=== PATIENT | male | born 1975 | race Caucasian/White ===

== ENCOUNTER 2017-02-28 21:37 | Emergency (ER) | payer OTHER ==
[~2017-02-28 21:37] MED LIST: IBUP600T26 PO; NORV10TA PO
[2017-02-28 22:19] VITALS: BP 158/89; PULSE 88; RESP 18; TEMP 98.1; O2SAT 100
[2017-02-28 23:05] LABS: AUTOMATED NEUTROPHIL # 4.3 TH/MM3 (1.8-7.7); BASOPHIL # 0.1 TH/MM3 (0-0.2); BASOPHIL % 1.2 % (0.0-2.0); EOSINOPHIL # 0.2 TH/MM3 (0-0.4); EOSINOPHIL % 3.3 % (0.0-4.0); HEMATOCRIT 46.1 % (39.0-51.0); HEMO FLAGS DIFF FINAL; LYMPH % 21.1 % (9.0-44.0); LYMPHOCYTE # 1.4 TH/MM3 (1.0-4.8); MEAN CELL VOLUME 85.8 FL (80.0-100.0); MEAN CORPUSCULAR HEMOGLOBIN 29.9 PG (27.0-34.0); MEAN CORPUSCULAR HGB CONC 34.8 % (32.0-36.0); MONO % 10.8 % (0.0-8.0); NEUT % 63.6 % (16.0-70.0); PLATELET COUNT 245 TH/MM3 (150-450); RED BLOOD COUNT 5.38 MIL/MM3 (4.50-5.90); RED CELL DISTRIBUTION WIDTH 13.6 % (11.6-17.2); WHITE BLOOD COUNT 6.7 TH/MM3 (4.0-11.0)
[2017-02-28 23:08] LABS: BARBITURATES, URINE NEG (NEG)
[2017-02-28 23:19] LABS: AMPHETAMINE, URINE NEG (NEG); COCAINE, URINE NEG (NEG)
--- NOTE | 2017-02-28 23:20 | PD ---
HPI Chief Complaint: Psychiatric Symptoms Time Seen by Provider: 22:50 Travel History International Travel<30 days: No Contact w/Intl Traveler<30days: No Traveled to known affect area: No History of Present Illness HPI 41yo M with PMH of ulcerative colitis was brought to the ED under [place] Act because he made a statement to his friend that he wanted to drive off the [place]ia. Pt states he was frustrated with his fiance and made a statement that he did not meant. Pt denies wanting to kill himself or hurt other people. Denies any auditory or visual hallucinations. Denies any fever, chest pain, sob , n/v, abdominal pain, focal weakness or numbness. Pt is no psych history. PFSH Past Medical History Cancer: No Cardiovascular Problems: No Diabetes: No Endocrine: No Glaucoma: No Genitourinary: No Hepatitis: No Hiatal Hernia: No Hypertension: Yes Immune Disorder: No Musculoskeletal: Yes (ARTHRITIS) Neurologic: No Psychiatric: No Reproductive: No Respiratory: No Thyroid Disease: No Past Surgical History Abdominal Surgery: Yes (APPENDECTOMY 2002) AICD: No Body Medical Devices: GUSTABO IN R LEG WITH SCREWS , PIN IN L HAND, R ELBOW HARDWARE Cardiac Surgery: No Ear Surgery: No Endocrine Surgery: No Eye Surgery: No Genitourinary Surgery: No Gynecologic Surgery: No Joint Replacement: No Oral Surgery: No Pacemaker: No Thoracic Surgery: No Other Surgery: Yes Social History Alcohol Use: No Tobacco Use: No Substance Use: No Allergies-Medications (Allergen,Severity, Reaction): Coded Allergies: Shellfish (Verified Allergy, Severe, 02/28/17) Reported Meds & Prescriptions Reported Meds & Active Scripts Active Review of Systems Except as stated in HPI: all other systems reviewed are Neg Physical Exam Narrative GENERAL: 41yo M not in distress. SKIN: Focused skin assessment warm/dry. HEAD: Atraumatic. Normocephalic. EYES: Pupils equal and round. No scleral icterus. No injection or drainage. ENT: No nasal bleeding or discharge. Mucous membranes pink and moist. NECK: Trachea midline. No JVD. CARDIOVASCULAR: Regular rate and rhythm. No murmur appreciated. RESPIRATORY: No accessory muscle use. Clear to auscultation. Breath sounds equal bilaterally. GASTROINTESTINAL: Abdomen soft, non-tender, nondistended. No rebound tenderness or guarding. MUSCULOSKELETAL: No obvious deformities. No clubbing. No cyanosis. No edema. NEUROLOGICAL: Awake and alert. No obvious cranial nerve deficits. Motor grossly within normal limits. Normal speech. PSYCHIATRIC: Appropriate mood and affect; insight and judgment normal. Data Data Last Documented VS Vital Signs Date Time Temp Pulse Resp B/P Pulse Ox O2 Delivery O2 Flow Rate FiO2 02/28/17 22:19 98.1 88 18 158/89 100 Orders Complete Blood Count With Diff (02/28/17 22:27) Comprehensive Metabolic Panel (02/28/17 22:27) Psych Screen (02/28/17 22:27) Drug Screen, Random Urine (02/28/17 22:27) Labs Laboratory Tests Test 02/28/17 22:45 White Blood Count 6.7 TH/MM3 Red Blood Count 5.38 MIL/MM3 Hemoglobin 16.1 GM/DL Hematocrit 46.1 % Mean Corpuscular Volume 85.8 FL Mean Corpuscular Hemoglobin 29.9 PG Mean Corpuscular Hemoglobin 34.8 % Concent Red Cell Distribution Width 13.6 % Platelet Count 245 TH/MM3 Mean Platelet Volume 7.8 FL Neutrophils (%) (Auto) 63.6 % Lymphocytes (%) (Auto) 21.1 % Monocytes (%) (Auto) 10.8 % Eosinophils (%) (Auto) 3.3 % Basophils (%) (Auto) 1.2 % Neutrophils # (Auto) 4.3 TH/MM3 Lymphocytes # (Auto) 1.4 TH/MM3 Monocytes # (Auto) 0.7 TH/MM3 Eosinophils # (Auto) 0.2 TH/MM3 Basophils # (Auto) 0.1 TH/MM3 CBC Comment DIFF FINAL Differential Comment Sodium Level 140 MEQ/L Potassium Level 4.2 MEQ/L Chloride Level 107 MEQ/L Carbon Dioxide Level 28.9 MEQ/L Anion Gap 4 MEQ/L Blood Urea Nitrogen 23 MG/DL Creatinine 1.27 MG/DL Estimat Glomerular Filtration 62 ML/MIN Rate Random Glucose 95 MG/DL Calcium Level 9.6 MG/DL Total Bilirubin 0.4 MG/DL Aspartate Amino Transf 36 U/L (AST/SGOT) Alanine Aminotransferase 47 U/L (ALT/SGPT) Alkaline Phosphatase 74 U/L Total Protein 7.4 GM/DL Albumin 4.2 GM/DL Urine Opiates Screen NEG Urine Barbiturates Screen NEG Urine Amphetamines Screen NEG Urine Benzodiazepines Screen NEG Urine Cocaine Screen NEG Urine Cannabinoids Screen NEG MDM Medical Decision Making Medical Screen Exam Complete: Yes Emergency Medical Condition: Yes Differential Diagnosis Medical clearance Narrative Course 41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 Pt denies any suicidal or homicidal ideations and states he was frustrated that his fiance's ex bought her gifts and just made a comment. Pt is AAOx3, very reasonable and seems reliable. After extensive conversation with the patient, I do not feel that he is a threat to himself or others and lifted the Dahl Act. Labs reviewed, no leukocytosis. BUN mildly elevated, encourage pt to drink fluids. Utox negative. Diagnosis Primary Impression: Encounter for medical clearance for patient hold Patient Instructions: General Instructions Departure Forms: Tests/Procedures Additional Instructions: I have evaluated the patient in the Emergency Department and do not feel that he is a threat to himself or others at this time and can return to work. He is instructed to follow up with primary care physician as an outpatient and return to the ED immediately if he has any thoughts of hurting himself or others. Med/Other Pt SpecificInfo: No Change to Meds Disposition: 01 DISCHARGE HOME Condition: Stable Cecilia Che DO February 28, 2017 23:20
[2017-02-28 23:29] LABS: ALKALINE PHOSPHATASE 74 U/L (45-117); TOTAL BILIRUBIN ADULT 0.4 MG/DL (0.2-1.0)
[2017-02-28 23:30] LABS: ALT (GPT) 47 U/L (12-78); ANION GAP 4 MEQ/L (5-15); AST (GOT) 36 U/L (15-37); BICARBONATE 28.9 MEQ/L (21.0-32.0); BLOOD UREA NITROGEN 23 MG/DL (7-18); CHLORIDE 107 MEQ/L (98-107); GLOMERULAR FILTRATION RATE 62 ML/MIN (>89); POTASSIUM 4.2 MEQ/L (3.5-5.1); SODIUM (NA) 140 MEQ/L (136-145)
== END 2017-03-01 00:31 | disposition home or self-care (01) ==
LOC: NEPD 21:37
DX: R45.851 Suicidal ideations (principal); I10 Essential (primary) hypertension
CPT/HCPCS: 80053; 80307; 85025; 99283